=== PATIENT | female | born 1930 ===

== ENCOUNTER 2018-03-06 06:45 | Day surgery (SDC) | payer OTHER ==
[~2018-03-06 06:45] MED LIST: ALBUTEROL SULFAT2 MG PO; ANORO ELLIPTA1 EACH IH; CARDURA XL4 MG PO; COREG CR10 MG PO; GABAPENTIN100 MG PO; PEPCID20 MG PO; PREVACID30 MG PO; TRAMADOL HCL50 MG PO
== END 2018-03-06 16:25 | disposition home or self-care (01) ==
LOC: CIR.AMB 06:45
DX: M99.63 Osseous and subluxation stenosis of intervertebral foramina of lumbar region (principal); M99.53 Intervertebral disc stenosis of neural canal of lumbar region